=== PATIENT | female | born 1965 | race Caucasian/White ===

== ENCOUNTER 2016-10-14 18:34 | Emergency (ER) | payer OTHER ==
[~2016-10-14] VITALS: Ht 162.6 cm; Wt 101.2 kg
[2016-10-14 18:44] VITALS: BP 154/72; PULSE 87; RESP 20; TEMP 98.4; O2SAT 99
[2016-10-14 19:09] LABS: BLOOD, URINE NEG (NEG); GLUCOSE,URINE NEG (NEG); KETONE, URINE NEG (NEG); NITRITE,URINE NEG (NEG)
--- NOTE | 2016-10-14 19:17 | PD ---
HPI Chief Complaint: Flank/Kidney Pain Time Seen by Provider: 19:06 Travel History International Travel<30 days: No Contact w/Intl Traveler<30days: No Traveled to known affect area: No History of Present Illness HPI The patient is a 51-year-old female that complains of low back pain for 2 hours. The pain is on the right side and does not radiate. She denies any numbness or weakness of her legs. Muscle movements like sitting up reproduces the patient's pain. She works at [employer] and is on her feet most of the day during work. PFSH Past Medical History ?: Not Social History Tobacco Use: No Allergies-Medications (Allergen,Severity, Reaction): Coded Allergies: No Known Allergies (Unverified , 10/14/16) Review of Systems Except as stated in HPI: all other systems reviewed are Neg Physical Exam Narrative GENERAL: Well-nourished, slightly obese, alert and oriented patient in slight apparent distress with her low back pain. Her vital signs show blood pressure 154/72 but otherwise normal. SKIN: Focused skin assessment warm/dry. HEAD: Normocephalic. EYES: No scleral icterus. No injection or drainage. NECK: Supple, trachea midline. No JVD or lymphadenopathy. CARDIOVASCULAR: Regular rate and rhythm without murmurs, gallops, or rubs. RESPIRATORY: Breath sounds equal bilaterally. No accessory muscle use. GASTROINTESTINAL: Abdomen soft, non-tender, nondistended. No guarding or rebound is present. A focused exam was done on the appendix because the patient states she did have some slight pain there earlier. MUSCULOSKELETAL: No cyanosis, or edema. I can completely reproduce the patient' s pain by pressing on the L5-S1 area about 5 centimeters to the right of midline. Straight leg raising is normal, deep tendon reflexes are +1 bilaterally both patella Achilles and pinprick is normal. BACK: Nontender without obvious deformity. No CVA tenderness. Data Data Last Documented VS Vital Signs Date Time Temp Pulse Resp B/P Pulse Ox O2 Delivery O2 Flow Rate FiO2 10/14/16 18:44 98.4 87 20 154/72 99 Orders Urinalysis - C+S If Indicated (10/14/16 18:46) Orphenadrine Inj (Norflex Inj) (10/14/16 19:30) Ketorolac Inj (Toradol Inj) (10/14/16 19:30) Labs Laboratory Tests Test 10/14/16 18:45 Urine pH 6.0 Urine Protein NEG mg/dL Urine Glucose (UA) NEG mg/dL Urine Ketones NEG mg/dL Urine Occult Blood NEG Urine Nitrite NEG Urine Bilirubin NEG Urine Leukocyte Esterase NEG MDM Medical Decision Making Medical Screen Exam Complete: Yes Emergency Medical Condition: Yes Medical Record Reviewed: Yes Differential Diagnosis Acute lumbosacral strain, sciatic nerve pain, lumbar radiculopathy, herniated nucleus pulposus Narrative Course The patient appears to have an acute lumbosacral strain. There is no evidence of any nerve involvement of her legs at this time. Diagnosis Primary Impression: Acute lumbosacral myofascial strain Additional Instructions: As we discussed, heating pad as useful. Turned on its lowest setting an interposed a towel between your skin and the pad to avoid tolentino. Follow-up with your primary care physician next week. Med/Other Pt SpecificInfo: Prescription(s) given Scripts Cyclobenzaprine (Flexeril)10 Mg Tab10 Mg PO TID #45 TAB Ref 0 Prov:Krystian Talley MD 10/14/16 Ibuprofen 600 Mg Uoz255 Mg PO TID #33 TAB Ref 0 Prov:Krystian Talley MD 10/14/16 Disposition: 01 DISCHARGE HOME Condition: Stable Krystian Talley MD Oct 14, 2016 19:17
[2016-10-14] MEDS ORDERED: BUSP5TAB PO (19:19)
[2016-10-14] MEDS ORDERED: OMEP40CA2 PO (19:19)
[2016-10-14] MEDS ORDERED: CYCL1TAB29 PO (19:22)
[2016-10-14] MEDS ORDERED: IBUP-232 PO (19:22)
[2016-10-14] MEDS ORDERED: ORPHENADRINE INJ 60 MG/2 ML AMP IM ONE (19:30)
[2016-10-14] MEDS ORDERED: KETOROLAC TROMETHAMINE 60 MG/2 ML (IM) VIAL IM ONE (19:30)
[2016-10-14 19:41] LABS: URINE COLOR YELLOW (YELLW/STRAW)
[2016-10-14 19:42] LABS: COMMENT (UR) CULT NOT INDICATED; CULTURE IF INDICATED CULT NOT INDICATED; RBC, URINE 0-3 /hpf (0-3); SQUAMOUS EPITHELIAL CELL URINE 0-5 /hpf (0-5); WBC, URINE 0-2 /hpf (0-5)
[2016-10-14 20:30] VITALS: RESP 18
== END 2016-10-14 20:35 | disposition home or self-care (01) ==
LOC: PHED 18:34
DX: S39.012A Strain of muscle, fascia and tendon of lower back, initial encounter (principal); X58.XXXA Exposure to other specified factors, initial encounter
CPT/HCPCS: 81001; 96372; 99284; J1885; J2360